=== PATIENT | male | born 1955 | race Caucasian/White ===

== ENCOUNTER 2017-03-09 06:38 | Outpatient (CLI) | payer OTHER ==
[2017-03-09 07:04] LABS: CREATININE 0.9 mg/dL (0.6-1.2)
[2017-03-09] MEDS ORDERED: IOPAMIDOL-300 100 ML VIAL IVP ONE (07:34)
[2017-03-09] MEDS ORDERED: IOPAMIDOL-300 50 ML VIAL PO ONE (07:34)
--- NOTE | 2017-03-09 12:58 | CT Report ---
DATE OF SERVICE: 03/09/[address]: 03/09/2017 COMPARISON: Abdomen and pelvis CT of 04/16/2012. INDICATION: Left lower quadrant pain. TECHNIQUE: Axial imaging of the abdomen and pelvis was performed with intravenous contrast, 100 mL Isovue 300. Oral contrast was also employed. Coronal and sagittal reformats were performed. FINDINGS: Lung bases are grossly unremarkable. The liver, spleen, pancreas, adrenal glands, and kidneys have a normal CT appearance. No abdominal mass, or adenopathy is demonstrated. There are multiple colon diverticula without evidence of diverticulitis or other acute inflammatory process. No abnormal fluid or intraabdominal air. No bone lesions. Soft tissues are grossly unremarkable. IMPRESSION: DESPITE THE CLINICAL HISTORY, THERE IS NO EVIDENCE OF DIVERTICULITIS OR OTHER ACUTE INFLAMMATORY PROCESS ABOUT THE ABDOMEN OR PELVIS. In accordance with CT protocol optimization, one or more of the following dose reduction techniques were utilized for this exam: automated exposure control, adjustment of mA and/or KV based on patient size, or use of iterative reconstructive technique. TD: 03/09/2017 13:57 MTDD
== END 2017-03-09 06:39 | disposition home or self-care (01) ==
LOC: LAB 06:38 → DI 06:39
PROVIDERS: ATTEND Internal Medicine
DX: R10.32 Left lower quadrant pain (principal); Z79.899 Other long term (current) drug therapy
CPT/HCPCS: 36415; 74177; 82565; Q9967

== ENCOUNTER 2017-05-03 15:47 | Outpatient (CLI) | payer OTHER ==
--- NOTE | 2017-05-04 10:12 | XRAY Report ---
THREE VIEW RIGHT FOOT: 05/03/2017 CLINICAL INDICATION: Pain. FINDINGS: AP, lateral, and oblique views of the right foot demonstrate osteoarthritis of the first metatarsophalangeal joint and interphalangeal joints. There is no evidence of acute fracture or dislocation. No radiopaque foreign body is seen in the soft tissues. IMPRESSION: MILD OSTEOARTHRITIS. TD: 05/04/2017 10:11
== END 2017-05-03 15:48 | disposition home or self-care (01) ==
LOC: DI 15:47
PROVIDERS: ATTEND Internal Medicine
DX: M19.071 Primary osteoarthritis, right ankle and foot (principal)

== ENCOUNTER 2022-01-19 10:27 | Outpatient (CLI) | payer MEDICARE, OTHER ==
--- NOTE | 2022-01-19 16:17 | XRAY Report ---
PROCEDURE: Ribs w/PA Chest RT INDICATIONS: RIB PAIN TECHNIQUE: 2 views of the right ribs were acquired, along with a single view chest. COMPARISON: None FINDINGS: Surgical changes and devices: None. Bones and chest wall: No fractures or dislocations. No suspicious bony lesions. Overlying soft tis sues appear unremarkable. Lungs and pleura: No pleural effusions or pneumothorax. Lungs appear clear. Mediastinum: Mediastinal contours appear normal. Heart size is normal. IMPRESSION: No displaced right rib fracture is seen. No acute cardiopulmonary pathology. Reviewed by: Russ Delgado MD on 01/19/2022 4:15 PM PST Approved by: Russ Delgado MD on 01/19/2022 4:15 PM PST Station ID: [id number]
== END 2022-01-19 10:28 | disposition home or self-care (01) ==
LOC: DI 10:27
PROVIDERS: ATTEND Internal Medicine
DX: R07.81 Pleurodynia (principal)

== ENCOUNTER 2022-10-24 08:21 | Outpatient (CLI) | payer MEDICARE, OTHER ==
[2022-10-24 08:47] LABS: CREATININE 0.9 mg/dL (0.6-1.3)
== END 2022-10-24 08:22 | disposition home or self-care (01) ==
LOC: LAB 08:21
PROVIDERS: ATTEND Internal Medicine
DX: Z79.899 Other long term (current) drug therapy (principal)
CPT/HCPCS: 36415; 82565

== ENCOUNTER 2022-10-26 10:18 | Outpatient (CLI) | payer MEDICARE, OTHER ==
--- NOTE | 2022-10-26 13:30 | CT Report ---
PROCEDURE: SOFT TISSUE NECK W INDICATIONS: NECK PAIN, LUMP IN THROAT, THROAT PAIN CONTRAST: 100ml omni 300 TECHNIQUE: After the administration of intravenous contrast, 3.0 mm axial sections acquired from the sella to th e aortic arch. Additional oblique axial 3.0 mm sections acquired through the pharynx. 3 mm thick co lazaro reformats were generated. For radiation dose reduction, the following was used: automated exp osure control, adjustment of mA and/or kV according to patient size. COMPARISON: None. FINDINGS: Image quality: Excellent. Lymph nodes: No enlarged lymph nodes seen throughout the neck. Vessels: Visualized vasculature appears patent. Mild atherosclerotic vascular calcifications. Neck spaces: The oropharynx, nasopharynx, and pharynx demonstrate no mucosal lesions. The vocal cor ds, false vocal cords, pyriform sinuses, epiglottis, vallecula, and tongue base all appear normal. E xtramucosal spaces appear unremarkable. Glands: The parotid and submandibular glands appear normal. The thyroid is normal in size and there are no incidental findings. Miscellaneous: Visualized brain and orbits appear normal. Lung apices appear clear. Superficial so ft tissues appear normal. Bones: No suspicious bony lesions. Degenerative changes of the cervical spine. Prior endoscopic sino nasal surgery. Mucous retention cyst within the right maxillary sinus. The mastoids appear unremarkab le. IMPRESSION: No cause for patient's symptoms is identified. No neck masses or enlarged cervical lymphadenopathy is identified. Reviewed by: Avery Gavin MD on 10/26/2022 1:29 PM PDT Approved by: Avery Gavin MD on 10/26/2022 1:29 PM PDT Station ID: [id number]
[2022-10-26] MEDS ORDERED: iohexoL-300 100 ML VIAL IVP ONE (15:30)
== END 2022-10-26 10:19 | disposition home or self-care (01) ==
LOC: DI 10:18
PROVIDERS: ATTEND Internal Medicine
DX: M54.2 Cervicalgia (principal); R07.0 Pain in throat; F45.8 Other somatoform disorders
CPT/HCPCS: 70491; Q9967

== ENCOUNTER 2023-06-01 11:08 | Outpatient (CLI) | payer MEDICARE, OTHER ==
[2023-06-01 11:31] LABS: BILIRUBIN,URINE NEGATIVE (NEGATIVE); CLARITY,URINE CLEAR (CLEAR); GLUCOSE, URINE (UA) NEGATIVE (NEGATIVE); KETONES,URINE (UA) NEGATIVE (NEGATIVE); LEUKOCYTE ESTERASE, URINE NEGATIVE (NEGATIVE); NITRITE,URINE NEGATIVE (NEGATIVE); OCCULT BLOOD,URINE NEGATIVE (NEGATIVE); PROTEIN,URINE NEGATIVE (NEGATIVE); UROBILINOGEN,URINE 0.2 (NORMAL) E.U./dL (NORMAL)
[2023-06-01 11:31] LABS: BASOPHILS % (AUTO) 0.7 %; EOSINOPHILS # (AUTO) 0.1 10^3/uL (0.0-0.7); EOSINOPHILS % (AUTO) 1.4 %; HCT - HEMATOCRIT 51.7 % (42.0-52.0); HGB - HEMOGLOBIN 16.6 g/dL (14.0-18.0); LYMPHOCYTES # (AUTO) 2.2 10^3/uL (1.5-3.5); LYMPHOCYTES % (AUTO) 37.5 %; MEAN CORPUSCULAR HEMOGLOBIN 30.1 pg (27.0-31.0); MEAN CORPUSCULAR HGB CONC 32.1 g/dL (32.0-36.0); MEAN CORPUSCULAR VOLUME 93.8 fL (80.0-94.0); MEAN PLATELET VOLUME 8.9 fL (7.4-11.4); MONOCYTES # (AUTO) 0.4 10^3/uL (0.0-1.0); MONOCYTES % (AUTO) 7.1 %; NEUTROPHILS # (AUTO) 3.1 10^3/uL (1.5-6.6); NEUTROPHILS % (AUTO) 53.1 %; PLT - PLATELET COUNT 276 10^3/uL (130-450); RED BLOOD COUNT 5.51 10^6/uL (4.70-6.10); RED CELL DISTRIBUTION WIDTH 13.6 % (12.0-15.0); WHITE BLOOD COUNT 5.7 x10^3/uL (4.8-10.8)
[2023-06-01 11:45] LABS: ALBUMIN 4.5 g/dL (3.2-5.5); ALBUMIN/GLOBULIN RATIO 1.7 (1.0-2.2); ALKALINE PHOSPHATASE 81 IU/L (42-121); ALT ALANINE AMINOTRANSFERASE 18 IU/L (10-60); AMYLASE 54 U/L (28-100); AST ASPARTATE AMINOTRANSFERASE 19 IU/L (10-42); BILIRUBIN,TOTAL 1.4 mg/dL (0.2-1.0); BUN - BLOOD UREA NITROGEN 14 mg/dL (6-20); CALCIUM 9.6 mg/dL (8.5-10.3); CARBON DIOXIDE - CO2 30 mmol/L (21-32); CHLORIDE 101 mmol/L (101-111); CHOL/HDL RATIO 2.6 (<5.0); CHOLESTEROL 246 mg/dL; CREATININE 0.8 mg/dL (0.6-1.3); GFR - MDRD 96 (>89); GLUCOSE 91 mg/dL (74-104); HDL CHOLESTEROL 93 mg/dL; LDL CHOLESTEROL,CALCULATED 136 mg/dL; LDL/HDL RATIO 1.5 (<3.6); LIPASE 11 U/L (11-82); POTASSIUM 3.7 mmol/L (3.5-4.5); SODIUM 137 mmol/L (135-145); TOTAL PROTEIN 7.2 g/dL (6.4-8.9); TRIGLYCERIDES 86 mg/dL (48-352); VLDL CHOLESTEROL 17 mg/dL
[2023-06-01 12:00] LABS: THYROID STIMULATING HORMONE 2.04 uIU/mL (0.34-5.60)
[2023-06-01 12:27] LABS: PSA TOTAL 1.822 ng/mL (0.000-2.000)
== END 2023-06-01 11:09 | disposition home or self-care (01) ==
LOC: LAB 11:08
PROVIDERS: ATTEND Internal Medicine
DX: Z00.00 Encounter for general adult medical examination without abnormal findings (principal); R10.9 Unspecified abdominal pain; R13.10 Dysphagia, unspecified; Z86.010 Personal history of colon polyps
CPT/HCPCS: 36415; 80053; 80061; 81001; 81003; 82150; 83690; 83721; 84153; 84443; 85025; 87086

== ENCOUNTER 2023-06-11 09:27 | Outpatient (CLI) | payer MEDICARE, OTHER ==
--- NOTE | 2023-06-11 19:48 | Ultrasound Report ---
PROCEDURE: Soft Tissue Head or Neck INDICATIONS: THYROMEGALY TECHNIQUE: Real-time scanning was performed of the thyroid gland, with image documentation. COMPARISON: None FINDINGS: Right: Thyroid lobe measures 5.0 x 1.7 x 1.5 cm, and is homogeneous in echotexture. Left: Thyroid lobe measures 4.2 x 1.9 x 1.3 cm, and is homogenous in echotexture. Isthmus: 0.4 cm thick. IMPRESSION: Unremarkable ultrasound of the thyroid Reviewed by: Josse Perry MD on 06/11/2023 6:47 PM AKDT Approved by: Josse Perry MD on 06/11/2023 6:47 PM AKDT Station ID: [id number]
== END 2023-06-11 09:28 | disposition home or self-care (01) ==
LOC: DI 09:27
PROVIDERS: ATTEND Internal Medicine
DX: E04.9 Nontoxic goiter, unspecified (principal)

== ENCOUNTER 2023-06-13 15:08 | Outpatient (CLI) | payer MEDICARE, OTHER ==
[2023-06-13] MEDS ORDERED: iohexoL-300 100 ML VIAL ONE (15:55)
[2023-06-13] MEDS ORDERED: DIATRIZOATE MEGLU/DIATRIZO SOD 30 ML BOTTLE PO ONE (15:55)
[2023-06-13] MEDS: iohexoL-300 100 ML VIAL IVP ONE (17:42)
[2023-06-13] MEDS: DIATRIZOATE MEGLU/DIATRIZO SOD 30 ML BOTTLE PO ONE (17:43)
--- NOTE | 2023-06-14 11:16 | CT Report ---
PROCEDURE: Abdomen/Pelvis W INDICATIONS: ABD PAIN CONTRAST: Omni 300 100ml TECHNIQUE: After the administration of intravenous contrast, a CT scan of the abdomen and pelvis was performed. Images were recorded and evaluated at appropriate window settings. Reformats: coronal and sagittal. F or radiation dose reduction, the following was used: automated exposure control, adjustment of mA and /or kV according to patient size. COMPARISON: CT on 03/09/2017. FINDINGS: Image quality: Diagnostic. Lower chest: Unremarkable. Liver: No solid mass. Gallbladder and biliary tree: No radiopaque stones or wall thickening. No biliary dilation. Spleen: No splenomegaly. Pancreas: No pancreatic ductal dilation. Adrenals: No adrenal nodule. Kidneys and ureters: No hydronephrosis. No renal cystic lesion which requires follow up. No solid mas s. Stomach, bowel and peritoneum: No bowel distension. No pathologic free fluid. Diverticulosis without evidence of diverticulitis. The appendix is not identified but there is no pericecal inflammation to suggest acute appendicitis. 6.7 x 3.4 cm nonobstructing duodenal diverticulum along the posterior mar gin of the pancreatic head. Lymph nodes: No central or retroperitoneal adenopathy. Vessels: No infrarenal aortic aneurysm. PELVIS Reproductive organs: Unremarkable. Bladder: No abnormal wall thickening, accounting for underdistention. Pelvic lymph nodes: No pelvic adenopathy by size criteria. Bones: No aggressive osseous abnormality. Other: No significant ventral or inguinal hernia. IMPRESSION: No findings to explain the patient's left lower quadrant pain. Colonic diverticulosis without evidence of diverticulitis. No hydronephrosis. Reviewed by: Ellis Hawkins MD on 06/14/2023 11:15 AM PDT Approved by: Ellis Hawkins MD on 06/14/2023 11:15 AM PDT Station ID: [id number]
== END 2023-06-13 15:09 | disposition home or self-care (01) ==
LOC: DI 15:08
PROVIDERS: ATTEND Internal Medicine
DX: R10.9 Unspecified abdominal pain (principal); R10.32 Left lower quadrant pain; K57.30 Diverticulosis of large intestine without perforation or abscess without bleeding
CPT/HCPCS: 74177; Q9963; Q9967